=== PATIENT | male | born 1965 | race Caucasian/White ===

== ENCOUNTER 2016-12-06 15:54 | Inpatient (IN) | payer BC ==
[~2016-12-06] VITALS: Ht 182.9 cm; Wt 121.7 kg
--- NOTE | ~2016-12-06 | ER ---
PATIENT'S NAME: YULI SILVA [facility] AGE: 51 Y [address] ROOM: [id number] [place] [address] LOCATION: [facility] ADMIT DATE: 12/06/2016 ER/Outpatient Report DISCHARGE DATE: FAMILY PHYSICIAN: KOFFI HOANG MD ATTENDING PHYSICIAN: MAIDA PAREDES CHIEF COMPLAINT: Mr. Silva presents by private vehicle from home via the office of Dr. Hoang who sent him in for further evaluation of extreme sleepiness and low blood pressures. HISTORY OF PRESENT ILLNESS: Mr. Silva has not been feeling well for the last few days. He began feeling very, very sleepy today, and they think he is not talking quite his normal. They state he is easily arousable, but he does not feel normal, and he is very unsteady on his feet. He states he feels like he is drunk. He denies any alcohol intake. He did have a fall last evening, but does not have any pain or discomfort from it. He has not taken anything for this. He does not think he took any extra medicines. His medical historyis notable for hypertension, headache, sleep apnea, and low testosterone as well as some chronic pain issues. PAST MEDICAL HISTORY: Documented on the record and reviewed by me. SOCIAL HISTORY: Documented on the record and reviewed by me. MEDICATIONS: Documented on the record and reviewed by me. ALLERGIES: DOCUMENTED ON THE RECORD AND REVIEWED BY ME. REVIEW OF SYSTEMS: All systems reviewed and negative except as noted in the HPI. PHYSICAL EXAMINATION: VITAL SIGNS: Blood pressure on arrival is 81/43, pulse 79, respiratory rate is 18, temperature 96.7, and SpO2 is 92% on room air. GENERAL: Age-appropriate male, sleeping on the exam table, in no apparent pain or distress. NEURO: The patient is sleeping. He is easily arousable to loud voice and gentle shaking. He opens his eyes. Speech is intelligible, slightly slowed, not slurred. He is oriented to person, place, and date. He cannot give much PATIENT'S NAME: YULI SILVA [facility] AGE: 51 Y [address] ROOM: [place] [address] LOCATION: [facility] ADMIT DATE: 12/06/2016 ER/Outpatient Report DISCHARGE DATE: FAMILY PHYSICIAN: KOFFI HOANG MD ATTENDING PHYSICIAN: MAIDA PAREDES history as to why he feels this way. He is able to follow commands in all extremities. There is no obvious asymmetry. He is otherwise feeling fine. HEENT: Normocephalic, atraumatic. Eyes are PERRL. Oropharynx is clear. NECK: Supple. Trachea is midline. CHEST: Heart has regular rate and rhythm with no murmurs. LUNGS: Clear to auscultation bilateral. No rhonchi, wheezes, or rales. ABDOMEN: Soft, nontender, nondistended. No rebound or guarding. BACK: Normal to inspection and palpation. EXTREMITIES: Warm and well perfused. There is some edema of the lower extremities, left slightly greater than right. SKIN: Clean, dry, and intact. LABORATORY DATA AND X-RAYS: Head CT is unremarkable per Radiology review. Chest x-ray is unremarkable per my review. Labs: ESR is 6. INR is less than 1. CBC with no elevation of white count, hemoglobin is 18.5, platelets of 228. D-dimer 0.56. Lactate is 1.0. CMS with no abnormalities. Cardiac markers are not elevated. CK-MB at 1.7. Troponin is undetectable. CRP is 2.04. Free T4 is 1. TSH is 1.72. EKG reveals sinus rhythm, rate of 63, with otherwise normal intervals and axis. No obvious abnormalities. No signs of acute ischemia. There is, however, inversion of the T-waves in lead III. No comparison available. IMPRESSION: Hypotension and somnolence of unclear etiology. EMERGENCY DEPARTMENT COURSE: The patient was seen and evaluated as above. He was initiated on volume resuscitation with a total of 2 L of normal saline. He was given Solu-Cortef 100 mg and did have improvement in his blood pressures initially. Broad differential including metabolic disturbance, drug overdose, intracranial hemorrhage, and pulmonary embolism amongst other things were entertained including severe hypothyroidism. Labs were obtained as noted above. The patient is still very listless and lethargic. We did count his clonidine pills and he is 10 short of where he should be on his prescription today. He had no significant changes in his mental status with improvement in his blood pressure. I did speak with Dr. Hoang regarding this, and he thinks the patient is not the type of individual to purposefully overdose. CT scan of the chest is pending. We did attempt Narcan with no improvement in mental status. Care was transitioned to Dr. Gomez at 1800 hours with plan to follow up his CT scan of the chest and anticipate admission to the hospital. PATIENT'S NAME: YULI SILVA [facility] AGE: 51 Y [address] ROOM: [place] [address] LOCATION: [facility] ADMIT DATE: 12/06/2016 ER/Outpatient Report DISCHARGE DATE: FAMILY PHYSICIAN: KOFFI HOANG MD ATTENDING PHYSICIAN: MAIDA PAREDES MD BEBE FELDMAN/alexander /[id number] d: 12/07/16 1012 t: 12/14/16 1020, OUTPATIENT REPORT
--- NOTE | ~2016-12-06 | DS ---
PATIENT'S NAME: YULI SILVA [facility] AGE: 51 Y [address] ROOM: [id number] [place], [place] [address] LOCATION: [facility] ADMIT DATE: 12/06/2016 Discharge Summary DISCHARGE DATE: 12/07/2016 FAMILY PHYSICIAN: Omid Hoang MD ATTENDING PHYSICIAN: Aure Marshall ADMITTING DIAGNOSES: Hypotension and acute encephalopathy. DISCHARGE DIAGNOSES: Hypotension and acute encephalopathy. SECONDARY DIAGNOSES: 1. Hypotension. 2. Obesity. 3. Obstructive sleep apnea. 4. Peripheral polyneuropathy. HISTORY OF PRESENT ILLNESS: The patient is a 51-year-old male, who was evaluated by the ED after he was transferred from his primary care physician after he was noted to have hypotension and acute encephalopathy. The patient has a history of chronic back pain, hypertension, and multiple potential sedating pain and muscle relaxant medications, brought to the emergency room today from his primary care physician office after presented there with reduced alertness and hypotension. The patient apparently had been in his normal state of health yesterday and this to be of new finding. Blood pressure had been in the 80s upon his initial presentation, had gotten 2 L of IV fluid with good response. The patient continued to be lethargic and difficult to be aroused. Etiology of his symptom was noted to be most likely secondary to concurrent use of clonidine 0.2 mg t.i.d. and cyclobenzaprine and Lyrica. HOSPITAL COURSE: The patient's medication was held and was given some IV fluid. The patient's mentation and blood pressure improved dramatically. A long discussion was made about the patient's medication. He was told to decrease his clonidine from 0.2 mg to 0.1 mg as an abrupt cessation can have any rebound effects. Also told to stop use of Flexeril. The patient is also on Xanax 1 mg t.i.d., discussed about possible cessation in the long-term. The patient's lisinopril was discontinued upon discharge. A long discussion made about titration of blood pressure medication and other blood pressure medication use other than clonidine. Discussed case with Dr. Hoang his primary care physician and discussed about assessment and plan. Agrees with the assessment and plan and agreed to follow the patient as an outpatient for reassessment of his blood pressure medication. CONDITION: Stable. PATIENT'S NAME: YULI SILVA [facility] AGE: 51 Y [address] ROOM: [address] [address] LOCATION: [facility]ICU ADMIT DATE: 12/06/2016 Discharge Summary DISCHARGE DATE: 12/07/2016 FAMILY PHYSICIAN: Omid Hoang MD ATTENDING PHYSICIAN: Aure Marshall DISPOSITION: Home. DISCHARGE MEDICATIONS: See JUN. 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 FOLLOWUP: Follow up with his primary care physician. Greater than 30 minutes was spent on discharge planning. MD AVNI VARELA/alexander /[id number] d: 12/07/16 2353 t: 12/13/16 1059, DISCHARGE SUMMARY
--- NOTE | ~2016-12-06 | ER ---
PATIENT'S NAME: YULI SILVA [facility] AGE: 51 Y [address] ROOM: [id number] [place] [address] LOCATION: [facility] ADMIT DATE: 12/06/2016 ER/Outpatient Report DISCHARGE DATE: FAMILY PHYSICIAN: KOFFI DELAROSA MD ATTENDING PHYSICIAN: MAIDA PAREDES ADDENDUM: MD BEBE FELDMAN/alexander /[id number] d: t: 12/14/16 1010, OUTPATIENT REPORT
--- NOTE | ~2016-12-06 | HP ---
PATIENT'S NAME: YULI SILVA [facility] AGE: 51 Y [address] ROOM: [place] [address] LOCATION: [facility] ADMIT DATE: 12/06/2016 History & Physical DISCHARGE DATE: FAMILY PHYSICIAN: KOFFI DELAROSA MD ATTENDING PHYSICIAN: MAIDA PAREDES DATE OF SERVICE: CHIEF COMPLAINT: Hypotension, likely drug induced, acute encephalopathy. HISTORY OF PRESENT ILLNESS: This is a 51-year-old male with a history of chronic back pain problems, hypertension, on multiple potentially sedating pain and muscle relaxant medications, brought to the emergency room today from his primary care physician's office after he presented there with reduced alertness and hypotension. The patient was apparently brought to Dr. Delarosa' office today by the family member after he was noted to be in his current state. During my evaluation of him, the patient is arousable to sternal rub and answers a few questions but falls right back to sleep. The patient apparently had been in his normal state of health yesterday, and this is a new finding. Blood pressure had been in the 80s upon his initial presentation and had gotten 2 L of IV fluid boluses with good response, and blood pressures are now in the one- teens. The patient continues to be lethargic and difficult to arouse and sleepy. This is most likely related to the patient's multiple medications including clonidine, cyclobenzaprine, Lyrica, and the like. I was not able to get any further history from the patient due to current mental status. PAST MEDICAL HISTORY: He has a history of hypertension, depression, obesity, tobacco abuse, anxiety, and depression. SOCIAL HISTORY: The patient is , with 3 kids. FAMILY HISTORY: The patient's father had heart disease and colon cancer. REVIEW OF SYSTEMS: Attempted to get a review of system, but due to the patient's mental status, I was not able to get a full history and conduct a full review of system. PHYSICAL EXAMINATION: VITAL SIGNS: Blood pressure 113/68, pulse 53, respiratory rate 12, saturating 92% on 3 L. PATIENT'S NAME: YULI SILVA [facility] AGE: 51 Y [address] ROOM: [place] [address] LOCATION: [facility] ADMIT DATE: 12/06/2016 History & Physical DISCHARGE DATE: FAMILY PHYSICIAN: KOFFI DELAROSA MD ATTENDING PHYSICIAN: MAIDA PAREDES GENERAL: The patient is sleepy but arousable to sternal rub. HEENT: Pupils dilated but reactive. SKIN: Without rash or lesions. CHEST: Clear to auscultation bilaterally. HEART: S1, S2. Regular rate and rhythm. Bradycardic. ABDOMEN: Soft, nontender, nondistended. Positive bowel sounds. MUSCULOSKELETAL: No joint effusion, tenderness, swelling noted. NEURO: The patient is able to move all his extremities. ASSESSMENT AND PLAN: 1. Hypotension. This appears to be medication or drug induced. Urine tox screen negative. The patient on multiple potentially sedating medications including clonidine, Xanax, Lyrica, Effexor, and Flexeril. We will hold all of these medications and closely monitor in an ICU setting. Anticipate the patient's mental status to improve with close monitoring. We will continue to give him IV fluid boluses as needed as well. 2. Acute encephalopathy. This is related to hypotension and manage as above. 3. History of essential hypertension. We will hold all blood pressure lowering medications at this point. 4. Acute respiratory failure with hypoxia. The patient requiring 4 L of oxygen. This is related to his mental status and may have underlying sleep apnea causing the desaturations. Continue supplemental oxygen and anticipate this to get better with improving mental status. 5. Depression. We will hold any sedating medications at this point. 6. Chronic back pain. Again, we will hold all sedating medications at this point. 7. Deep venous thrombosis prophylaxis. We will use subcu heparin. MAIDA PAREDES MD BG/modl /[id number] D: T: 958 HISTORY & PHYSICAL
--- NOTE | ~2016-12-06 | ER ---
PATIENT'S NAME: YULI SILVA [facility] AGE: 51 Y [address] ROOM: [id number] [place], [place] [address] LOCATION: [facility] ADMIT DATE: 12/06/2016 ER/Outpatient Report DISCHARGE DATE: FAMILY PHYSICIAN: KOFFI DELAROSA MD ATTENDING PHYSICIAN: MAIDA MARSHALL HISTORY OF PRESENT ILLNESS: Yuli is a 51-year-old male who was evaluated by Dr. Lopez, please refer to his dictation. At shift change, I assumed care for followup of head CT and PE study, chest, protocol CT. The patient was given 0.2 mg IV Narcan upon my arrival with no change. The patient does arouse to verbal stimulation, but quickly falls back to sleep after talking with him. History was reviewed from the chart, with the patient, and with Dr. Lopez. The patient himself though is not much of a historian due to his lethargy. Vitals at the time of my arrival, blood pressure is 96 systolic after a second liter of IV fluids and 0.2 of Narcan, saturations are above 90% on O2. He had received 2 L of normal saline, Solu-Cortef 100 mg IV, Narcan 0.2 mg IV. His med list was reviewed. INR 0.98. Sedimentation rate 6. Hemoglobin 18.5, hematocrit 52.6, platelets 228, white count 9.0. D-dimer 0.56. CT, PE protocol, negative. Lactate 1.0. Chemistry panel, all within normal limits. Blood sugar 95. Cardiac enzymes negative x1. CRP 2.04. Free T4 1, TSH 1.720. EKG, normal sinus rhythm at 63 beats per minute, no acute findings. Head CT, negative. Procalcitonin less than 0.05. UA not obtained while he was down here. Urine drug screen not obtained while he was down here. PHYSICAL EXAMINATION: GENERAL: The patient does arouse, but is very lethargic. HEENT: Pupils are dilated at approximately 7 mm, sluggish to react. LUNGS: Clear to auscultation. HEART: Regular rate and rhythm. ABDOMEN: Soft, nondistended, and nontender. SKIN: [place], warm, and dry. No lesions or rashes noted. NEURO: The patient is lethargic, but will arouse. [place] Coma Score is 13. IMPRESSION AND PLAN: 1. Lethargy and altered mental status. 2. hypotension. PLAN: I suspect that this may be some sort of a medication reaction, 10 of his clonidine pills are missing, he did state that he spilled them. We did try Narcan with no improvement. The patient's urine drug screen has not yet been obtained. He will be admitted per Dr. Marshall who evaluated him in the emergency room. PATIENT'S NAME: YULI SILVA [facility] AGE: 51 Y [address] ROOM: [address] [address] LOCATION: [facility] ADMIT DATE: 12/06/2016 ER/Outpatient Report DISCHARGE DATE: FAMILY PHYSICIAN: KOFFI DELAROSA MD ATTENDING PHYSICIAN: MAIDA MARSHALL FELISA TILLMAN MD CAR/modl /[id number] d: 12/06/162132 t: 12/11/16 0628, OUTPATIENT REPORT
[~2016-12-06 15:54] MED LIST: ADVIL200 MG PO; BUPRENORPHN-NA1 EACH SL; CATAPRES0.2 MG PO; COLACE100 MG PO; DEPO-TESTO200 MG/1 M IM; EFFEXOR XR75 MG PO; ONE DAILY FOR1 EAC1 PO; PERCOCET 5-3251 EACH PO; PRILOSEC20 MG PO; PRINIVIL (ZESTR20 MG PO; XANAX1 MG PO
[2016-12-06 16:53] LABS: BASOPHIL # 0.1 K/uL (0.0-0.2); BASOPHIL % 0.7 %; EOSINOPHIL # 0.2 K/uL (0.0-0.5); EOSINOPHIL % 1.9 %; HEMATOCRIT 52.6 % (37.0-53.0); HEMOGLOBIN 18.5 g/dL (12.0-17.0); IMMATURE GRANULOCYTE % 0.2 %; LYMPHOCYTE # 2.2 K/uL (0.8-4.0); MCH 34.7 pg (27.0-34.0); MCHC 35.2 gm/dL (32.0-36.5); MCV 98.7 fl (83.0-98.0); MONOCYTE # 1.2 K/uL (0.0-1.0); NEUTROPHIL # (ANC) 5.4 K/uL (1.4-9.0); NEUTROPHIL % 60.2 %; NRBC % 0 /100WBC (0-0.00); PLATELET COUNT 228 K/uL (150-450); RBC 5.33 M/uL (4.00-6.00)
[2016-12-06 17:09] LABS: INR - (THERAPEUTIC) 0.98 (0.92-1.07); PROTIME 10.3 SECONDS (9.8-11.4)
[2016-12-06 17:10] LABS: ALBUMIN 3.7 gm/dL (3.5-5.0); ANION GAP 10.2 (10.0-19.0); CALCIUM 8.9 mg/dL (8.5-10.5); CREATININE 1.3 mg/dL (0.6-1.3); POTASSIUM 4.2 mMol/L (3.7-5.1); TOTAL BILIRUBIN 0.5 mg/dL (0.0-1.5); TOTAL PROTEIN 7.5 g/dL (6.0-8.4)
[2016-12-06 17:16] LABS: CPK 125 IU/L (35-332)
[2016-12-06] MEDS ORDERED: LYRICA 100MG C100 MG PO (20:14)
[2016-12-06] MEDS ORDERED: FLOMAX0.4 MG PO (20:18)
[2016-12-07 05:50] LABS: BASOPHIL % 0.4 %; EOSINOPHIL % 0.5 %; HEMATOCRIT 49.2 % (37.0-53.0); HEMOGLOBIN 16.6 g/dL (12.0-17.0); IMMATURE GRANULOCYTE % 0.2 %; LYMPHOCYTE # 1.8 K/uL (0.8-4.0); LYMPHOCYTE % 21.8 %; MCH 33.9 pg (27.0-34.0); MCHC 33.7 gm/dL (32.0-36.5); MCV 100.4 fl (83.0-98.0); MONOCYTE # 0.9 K/uL (0.0-1.0); MONOCYTE % 10.9 %; MPV 10.5 fl (9.4-12.4); NEUTROPHIL # (ANC) 5.3 K/uL (1.4-9.0); NEUTROPHIL % 66.2 %; NRBC % 0 /100WBC (0-0.00); PLATELET COUNT 207 K/uL (150-450); RDW-CV 13.2 % (11.9-14.6)
[2016-12-07 06:08] LABS: ANION GAP 9.2 (10.0-19.0); BLOOD UREA NITROGEN 10 mg/dL (6-24); CALCIUM 8.1 mg/dL (8.5-10.5); CHLORIDE 106 mMol/L (96-110); CO2 30 mMol/L (22-32); CREATININE 0.9 mg/dL (0.6-1.3); MAGNESIUM 2.1 mg/dL (1.8-2.6); PHOSPHORUS 2.6 mg/dL (2.5-4.9); POTASSIUM 4.2 mMol/L (3.7-5.1); SODIUM 141 mMol/L (135-145)
== END 2016-12-07 16:20 | disposition disaster alternative care site (69) | DRG 91 ==
LOC: GMED 15:54 → GICU 18:34
PROVIDERS: Emergency Medicine; ADMIT Internal Medicine
DX: G92 Toxic encephalopathy (principal); J96.01 Acute respiratory failure with hypoxia; I95.2 Hypotension due to drugs; T46.5X5A Adverse effect of other antihypertensive drugs, initial encounter; T48.1X5A Adverse effect of skeletal muscle relaxants [neuromuscular blocking agents], initial encounter; T42.6X5A Adverse effect of other antiepileptic and sedative-hypnotic drugs, initial encounter; I10 Essential (primary) hypertension; E66.9 Obesity, unspecified; Z68.36 Body mass index [BMI] 36.0-36.9, adult; G47.33 Obstructive sleep apnea (adult) (pediatric); G62.9 Polyneuropathy, unspecified; G89.29 Other chronic pain; M54.9 Dorsalgia, unspecified; F32.9 Major depressive disorder, single episode, unspecified; F41.9 Anxiety disorder, unspecified; Z87.891 Personal history of nicotine dependence; K21.9 Gastro-esophageal reflux disease without esophagitis
CPT/HCPCS: J1644; J1720; J2310; J7030